=== PATIENT | female | born 1990 | race Caucasian/White ===

== ENCOUNTER 2025-04-11 12:16 | Emergency (ER) | payer OTHER, BC ==
[2025-04-11] MEDS: Acetaminophen/HYDROcodone 325-5 MG Tab PO ONE (14:09)
== END 2025-04-11 15:07 | disposition home or self-care (01) ==
LOC: MW.ED 12:16
DX: S20.211A Contusion of right front wall of thorax, initial encounter (principal); S49.91XA Unspecified injury of right shoulder and upper arm, initial encounter; S79.911A Unspecified injury of right hip, initial encounter; Z79.899 Other long term (current) drug therapy; W00.0XXA Fall on same level due to ice and snow, initial encounter; Y99.0 Civilian activity done for income or pay
CPT/HCPCS: 71101; 73030; 73502; 99283; A9270